=== PATIENT | female | born 1980 | race Caucasian/White ===

== ENCOUNTER 2017-07-05 18:40 | Emergency (ER) | payer SELFPAY ==
--- NOTE | 2017-07-05 19:01 | PDOC ---
History of Present Illness - General History Source: Patient Exam Limitations: No Limitations - History of Present Illness Initial Comments: 07/05/17 19:24 The patient is a 37-year-old female, with a significant past medical history of sickle cell trait (takes iron supplements), who presents to the ED with pain to right side of neck that began on . Pt states that the pain initially began behind her right ear. She went to her PCPs office (Dr. Doug Carcamo) and was seen by Dr. Ovalle who advised the patient that her symptoms would resolve since she was taking a course of Cipro at that time to treat a UTI. After the visit, pt states that her pain progressively worsened and began to radiate down the right side of her neck. The pain is exacerbated with turning her head. She denies having any pain with swallowing. She denies sore throat or fever. She does report having shoulder pain but states that she always has this pain. She denies any fever, chills, nausea, vomiting, diarrhea, or abdominal pain. She denies any urinary changes. PCP: Dr. Doug Carcamo PAST MEDICAL HISTORY: sickle cell trait PAST SURGICAL HISTORY: no significant history FAMILY HISTORY: HTN, diabetes, lung/colon cancer SOCIAL HISTORY: Pt lives with family and is employed. MEDICATIONS: reviewed ALLERGIES: As per nursing notes General: No fevers or chills, no weakness, no weight loss HEENT: (+)pain to right side of neck. No change in vision. No sore throat,. No ear pain CardioVascular: No chest pain or shortness of breath Respiratory:No cough, or wheezing. Gastrointestinal: no nausea, vomiting, diarrhea or constipation, No rectal bleeding Genitourinary: No dysuria, hematuria, or frequency Musculoskeletal: (+)Shoulder pain. No joint pain or swelling Neurologic: No headache, vertigo, dizziness or loss of consciousness Psychiatric: nor depression Skin: No rashes or easy bruising Endocrine: no increased thirst or abnormal weight change Allergic: no skin or latex allergy All other systems reviewed and normal GENERAL: The patient is awake, alert, and fully oriented, in no acute distress. HEAD: Normal with no signs of trauma. EYES: Pupils equal, round and reactive to light, extraocular movements intact, sclera anicteric, conjunctiva clear. NECK/THROAT: (+)Tenderness on palpation over the right TMJ. No swelling or redness. No lymphadenopathy. EXTREMITIES: Normal range of motion, no edema. NEUROLOGICAL: Normal speech, normal gait. PSYCH: Normal mood, normal affect. SKIN: Warm, Dry, normal turgor, no rashes or lesions noted. <Maci Alford - Last Filed: 07/05/17 19:24> - General History Source: Patient Exam Limitations: No Limitations - History of Present Illness Initial Comments: A portion of this note was documented by scribe services under my direction. I have reviewed the details of the note, within reason, and agree with the documentation. The case summary and management plan written by me. Assessment and plan: This is a 37-year-old female who comes in complaining of pain to the right side of her face and neck. Patient on exam has tenderness over her right TMJ and was able to elicit from her significant other that she does grind her teeth at night. Otherwise there is no lymphadenopathy and no meningeal signs. Patient given anti-inflammatory told to follow-up with her dentist if not improved in one week. <Sonny Awan I - Last Filed: 07/05/17 19:50> - General Chief Complaint: Pain Stated Complaint: RT NECK/THROAT DISCOMFORT Time Seen by Provider: 07/05/17 19:00 Past History <Maci Alford - Last Filed: 07/05/17 19:24> - Past Medical History Anemia: No Asthma: No Cancer: No Cardiac Disorders: No CVA: No COPD: No CHF: No Dementia: No Diabetes: No GI Disorders: No Disorders: No HTN: No Hypercholesterolemia: No Liver Disease: No Seizures: No Thyroid Disease: No Other medical history: SICKLE CELL TRAIT, NODULES ON THYROID - Suicide/Smoking/Psychosocial Hx Smoking Status: Yes Smoking History: Former smoker Have you smoked in the past 12 months: Yes Number of Cigarettes Smoked Daily: 3 If you are a former smoker, when did you quit?: 03/02 Cigars Per Day: 3 Information on smoking cessation initiated: No 'Breaking Loose' booklet given: 03/28/12 Hx Alcohol Use: No Drug/Substance Use Hx: No Substance Use Type: None Hx Substance Use Treatment: No <Sonny Awan Last Filed: 07/05/17 19:50> - Past Medical History Allergies/Adverse Reactions: Allergies Allergy/AdvReac Type Severity Reaction Status Date / Time No Known Drug Allergies Allergy Verified 07/05/17 18:41 Home Medications: Ambulatory Orders NK [No Known Home Medication] 07/05/17 *Physical Exam - Vital Signs Last Vital Signs Temp Pulse Resp BP Pulse Ox 98.4 F 90 18 126/95 99 07/05/17 18:40 07/05/17 18:40 07/05/17 18:40 07/05/17 18:40 07/05/17 18:40 <Maci Alford - Last Filed: 07/05/17 19:24> - Vital Signs Last Vital Signs Temp Pulse Resp BP Pulse Ox 98.4 F 90 18 126/95 99 07/05/17 18:40 07/05/17 18:40 07/05/17 18:40 07/05/17 18:40 07/05/17 18:40 <Sonny Awan I - Last Filed: 07/05/17 19:50> *DC/Admit/Observation/Transfer - Attestations Scribe Attestion: 07/05/17 19:31 Documentation prepared by Maci Alford, acting as medical billing assistant for Sonny Awan MD. <Maci Alford - Last Filed: 07/05/17 19:24> - Discharge Dispostion Admit: No <Sonny Awan I - Last Filed: 07/05/17 19:50> Diagnosis at time of Disposition: Temporomandibular joint (TMJ) pain Qualifiers: Laterality: right Qualified Code(s): M26.621 - Arthralgia of right temporomandibular joint - Discharge Dispostion Disposition: HOME Condition at time of disposition: Stable - Referrals Referrals: Doug Carcamo MD [Primary Care Provider] - - Patient Instructions Additional Instructions: For the pain take Naprosyn 1 or 2 tablets twice a day for the next week. Follow-up with a dentist for evaluation of TMJ dysfunction if symptoms are not improved or resolved with the naproxen Return to the emergency department immediately with ANY new, persistent or worsening symptoms. Continue any medications as previously prescribed by your physician. . Please make sure your doctor reviews the results of your emergency evaluation. Thank you for coming to the Emergency Department today for your care. It was a pleasure to see you today. Please note that your evaluation is INCOMPLETE until you follow-up with your doctor. - Post Discharge Activity
[2017-07-05 19:02] VITALS: BP 126/95; PULSE 90; TEMP 98.4; BMI 22.1
[2017-07-05] MEDS ORDERED: NAPROXEN 500 MG TABLET (FP) PO ONE (19:11)
[2017-07-05] MEDS ORDERED: NAPROXEN 500 MG TABLET (FP) ONE (19:27)
== END 2017-07-05 19:35 | disposition home or self-care (01) ==
LOC: FER 18:40
DX: M26.621 Arthralgia of right temporomandibular joint (principal); D57.3 Sickle-cell trait; Z87.891 Personal history of nicotine dependence
CPT/HCPCS: 99283-25